=== PATIENT | female | born 1945 | race Caucasian/White ===

== ENCOUNTER 2017-04-08 05:16 | Day surgery (SDC) | payer OTHER ==
--- NOTE | ~2017-04-08 | OP ---
Record Of Operation [facility] [address] [place]. [address] NAME: ARIANA DON : 41 [place] [facility] [place] [id number] AGE: 72 ADM/REG DATE : 04/08/17 MR#: [id number] REPORT SERV DATE: 04/08/17 DICTATED BY: DAVI REY DATE: 04/08/17 REPORT STATUS : Draft TRANSCRIBED BY: MODL DATE: 04/08/17 DATE OF PROCEDURE: 04/08/2017 PREOPERATIVE DIAGNOSES: 1. Left-sided L4-5 disk herniation. 2. Lumbar radiculopathy. POSTOPERATIVE DIAGNOSES: 1. Left-sided L4-5 disk herniation. 2. Lumbar radiculopathy. PROCEDURES: Left-sided L4-5 microdiscectomy, use of operative microscope, minimal access spine technology, intraoperative O-arm CT scan with computer navigation with decompression of the left-sided L4 and L5 nerve roots. SURGEON: Davi Rey DO. ANESTHESIA: General. ESTIMATED BLOOD LOSS: 5 mL. COMPLICATIONS: None. INDICATIONS: The patient is a pleasant 72-year-old with intractable left lower extremity pain, failed conservative treatment including physical therapy and epidural injections. After discussion of risks and benefits, elected to proceed with surgical intervention. PROCEDURE IN DETAIL: I identified the patient in the holding area. Consent was obtained. Went to the operating room. Underwent general anesthesia with endotracheal intubation. Prepped and draped in the usual sterile fashion. Operative safety pause was performed, then we proceeded. An O-arm registration frame was placed in the iliac crest and the arm was brought in for intraoperative CT scan. Computer registration materials were verified. Under computer guidance, a left longitudinal incision was made over the L4-L5 level taken down through the fascial layer. Tube dilators were used to minimally invasively dissect down to the left L4-L5 interspace. Operative microscope was brought in. A dennis was used to perform a laminotomy and partial facetectomy. Sadiq performed a foraminotomy. Disk was incised with a knife and free disk material removed with pituitary. The L4 and L5 nerve roots were identified and free of compression. Irrigation was performed. Hemostasis achieved. 40 mg of Depo-Medrol injected over the nerve roots. Layered closure performed. Sterile dressings applied. The patient was awoke and extubated, and taken to recovery room in stable condition. OPERATIVE FINDINGS: Left L4-5 disk herniation with nerve compression. Record Of Operation [facility] [address] [place] [id number] NAME: ARIANA DON : 41 [place] [facility] [place] [place] [id number] AGE: 72 ADM/REG DATE : 04/08/17 MR#: [id number] REPORT SERV DATE: 04/08/17 DICTATED BY: DAVI REY DATE: 04/08/17 REPORT STATUS : Draft TRANSCRIBED BY: MODL DATE: 04/08/17 HAYDEE/SABA Davi Rey DO / [id number] CC: DO Rose Diehl NP
[~2017-04-08 05:16] MED LIST: ADVAIR250 INH; AMIT50 PO; ASA5GR PO; ASAB PO; ASABAYER PO; CALCIUM CHEWABLE PO; COZAAR100 MG PO; GLUCPH PO; HYZAAR 50/12.51 TAB PO; K500 PO; LIPITOR40 PO; LORTAB10 PO; MOBIC15 MG PO; NAP500 PO; NEUR300 PO; NEUR600 PO; NORCO1 TA1 PO; OGEN.625 PO; PAX20 PO; PRILO PO; PROAIR HFA INH; ULTRAM50 PO; ZESTORETIC PO; ZYRTEC ALLGY10 MG PO
[2017-06-26] MEDS ORDERED: BACTRONASA NAS (14:51)
[2017-06-26] MEDS ORDERED: PCET PO (14:53)
[2017-06-26] MEDS ORDERED: FLEX PO (14:54)
== END 2017-04-08 12:28 | disposition home or self-care (01) ==
LOC: SDC 05:16
PROVIDERS: Orthopaedic Surgery
PROC: 01NB0ZZ Release Lumbar Nerve, Open Approach (ICD-10-PCS; 2017-04-08)
PROC: 0SB20ZZ Excision of Lumbar Vertebral Disc, Open Approach (ICD-10-PCS; principal; 2017-04-08 06:45)
DX: M51.16 Intervertebral disc disorders with radiculopathy, lumbar region (principal); I10 Essential (primary) hypertension; E11.9 Type 2 diabetes mellitus without complications; F32.9 Major depressive disorder, single episode, unspecified; Z88.5 Allergy status to narcotic agent; Z88.2 Allergy status to sulfonamides; Z90.710 Acquired absence of both cervix and uterus; Z90.49 Acquired absence of other specified parts of digestive tract; Z96.651 Presence of right artificial knee joint; Z98.890 Other specified postprocedural states
CPT/HCPCS: 80048; 82962; 85014; 85018; 88304; 88311; 93005; A9270-GY; J0690; J1030; J2250; J2405; J2710; J3010